=== PATIENT | male | born 1990 | race Hispanic/Latino ===

== ENCOUNTER 2018-05-17 08:59 | Emergency (ER) | payer MEDICAID ==
[2018-05-17 09:13] VITALS: BP 128/71
[2018-05-17] MEDS ORDERED: XYLOCAINE 1% 20 mL INFILTRATI ONE (09:51)
[2018-05-17] MEDS ORDERED: ZOFRAN ODT PO ONE (11:03)
[2018-05-17] MEDS ORDERED: TYLENOL #3 PO ONE (11:03)
[2018-05-17] MEDS ORDERED: BACTRIM DS PO ONE (11:03)
--- NOTE | 2018-05-17 11:08 | Emergency Department Report ---
ED General Adult HPI - General Chief complaint: Extremity Problem,Nontraumatic Stated complaint: LEFT KNEE PAIN Time Seen by Provider: 05/17/18 09:25 Source: patient Mode of arrival: Wheelchair Limitations: No Limitations - Related Data Previous Rx's Medication Instructions Recorded Last Taken Type Acetaminophen/Codeine [Tylenol 1 tab PO Q6H PRN #12 tab 05/17/18 Unknown Rx /Codeine # 3 tab] Sulfamethoxazole/Trimethoprim 2 each PO BID #28 tablet 05/17/18 Unknown Rx [Bactrim Ds Tablet] Allergies Allergy/AdvReac Type Severity Reaction Status Date / Time No Known Allergies Allergy Unverified 09/13/15 08:41 ED Review of Systems ROS: Stated complaint: LEFT KNEE PAIN Other details as noted in HPI Comment: All other systems reviewed and negative Constitutional: denies: chills, fever Eyes: denies: eye pain, eye discharge, vision change ENT: denies: ear pain, throat pain Respiratory: denies: cough, shortness of breath, wheezing Cardiovascular: denies: chest pain, palpitations Endocrine: no symptoms reported Gastrointestinal: denies: abdominal pain, nausea, diarrhea Genitourinary: denies: urgency, dysuria Musculoskeletal: denies: back pain, joint swelling, arthralgia Skin: denies: rash, lesions Neurological: denies: headache, weakness, paresthesias Psychiatric: denies: anxiety, depression Hematological/Lymphatic: denies: easy bleeding, easy bruising ED Past Medical Hx - Past Medical History Previous Medical History?: No - Surgical History Past Surgical History?: No - Social History Smoking Status: Current Every Day Smoker Substance Use Type: Marijuana - Medications Home Medications: Home Medications Medication Instructions Recorded Confirmed Last Taken Type Acetaminophen/Codeine [Tylenol 1 tab PO Q6H PRN #12 tab 05/17/18 Unknown Rx /Codeine # 3 tab] Sulfamethoxazole/Trimethoprim 2 each PO BID #28 tablet 05/17/18 Unknown Rx [Bactrim Ds Tablet] ED Physical Exam - General Limitations: No Limitations General appearance: alert, in no apparent distress - Head Head exam: Present: atraumatic, normocephalic - Eye Eye exam: Present: normal appearance, PERRL, EOMI - ENT ENT exam: Present: mucous membranes moist - Neck Neck exam: Present: normal inspection - Respiratory Respiratory exam: Present: normal lung sounds bilaterally - Cardiovascular Cardiovascular Exam: Present: regular rate, normal rhythm. Absent: systolic mu rmur, diastolic murmur, rubs, gallop - Rectal Rectal exam: Present: deferred - Extremities Exam Extremities exam: Present: other (there is a prepatellar abscess of the left knee with surrounding cellulitis) - Back Exam Back exam: Present: normal inspection - Neurological Exam Neurological exam: Present: alert, oriented X3, CN II-XII intact. Absent: motor sensory deficit - Psychiatric Psychiatric exam: Present: normal affect, normal mood - Skin Skin exam: Present: warm, dry, intact, normal color. Absent: rash ED Course Vital Signs 05/17/18 05/17/18 09:10 09:21 Temperature 98.1 F Pulse Rate 99 H Respiratory 20 18 Rate Blood Pressure 128/71 O2 Sat by Pulse 99 Oximetry - I & D Left Lower Knee Site: left prepatellar region Blade Size: 11 I & D Procedure: betadine prep, sterile drapes applied Progress: Lidocaine used Patient tolerated procedure well no complications ED Medical Decision Making - Medical Decision Making Discussed wound care with patient I&D not optimal due to the patient not being completely cooperative with the procedure Critical care attestation.: If time is entered above; I have spent that time in minutes in the direct care of this critically ill patient, excluding procedure time. ED Disposition Clinical Impression: Abscess, Cellulitis Disposition: TO HOME OR SELFCARE Is pt being admited?: No Does the pt Need Aspirin: No Condition: Stable Instructions: Abscess (ED) Additional Instructions: return if worse Prescriptions: Acetaminophen/Codeine [Tylenol /Codeine # 3 tab] 1 tab PO Q6H PRN #12 tab PRN Reason: pain Sulfamethoxazole/Trimethoprim [Bactrim Ds Tablet] 2 each PO BID #28 tablet Referrals: PRIMARY CARE, [Primary Care Provider] - 3-5 Days [facility] [Provider Group] - 3-5 Days [facility] [Provider Group] - 3-5 Days Time of Disposition: 11:08
== END 2018-05-17 11:22 | disposition home or self-care (01) ==
LOC: ED 08:59
DX: L02.416 Cutaneous abscess of left lower limb (principal); F17.200 Nicotine dependence, unspecified, uncomplicated
CPT/HCPCS: Q0162

== ENCOUNTER 2020-01-07 17:39 | Emergency (ER) | payer SELFPAY ==
[2020-01-07] MEDS ORDERED: ONDANSETRON 4 MG/2 ML INJ ONE (18:43)
[2020-01-07] MEDS ORDERED: MORPHINE 4 MG/1 ML INJ ONE (18:43)
--- NOTE | 2020-01-07 18:46 | XRay Report ---
HISTORY:WRIST PAIN/ SWELLING DEFFORMITY COMPARISON: None. TECHNIQUE: AP and lateral views were obtained FINDINGS: Bones: Fracture of the distal radius metaphyseal diaphyseal region is present with a component extend ing into the radiocarpal articular space. The ulnar styloid appears to be intact Joint spaces: Maintained. Soft tissues: No significant abnormality. Additional findings: None. IMPRESSION: 1. Fracture distal radius as noted Signer Name: Ruslan Carter MD Signed: 01/07/2020 6:42 PM Workstation Name: [id number]
[2020-01-07] MEDS ORDERED: HYDROmorphone 1 MG/1 ML INJ IV ONE (19:07)
--- NOTE | 2020-01-07 19:07 | Emergency Department Report ---
ED General Adult HPI - General Chief complaint: Extremity Injury, Upper Stated complaint: LEFT WRIST PAIN Time Seen by Provider: 01/07/20 18:35 Source: patient Mode of arrival: Ambulatory Limitations: No Limitations - History of Present Illness Initial comments: Patient presents to the emergency department the chief complaint of left arm pain that started after a fall yesterday. Patient states that he was on the [address] and he fell onto [address] and went to brace his fall when he began to have pain in his left forearm. Patient denies hitting his head or any loss of consciousness. Patient states this occurred around 10 AM yesterday. Patient states the pain got worse today at work. 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 Patient denies any chest pain, shortness breath, headache, abdominal pain. -: Sudden Location: upper extremity Radiation: non-radiation Severity scale (0 -10): 7 Quality: aching Consistency: constant Improves with: rest Worsens with: movement Associated Symptoms: denies other symptoms Treatments Prior to Arrival: none - Related Data Previous Rx's Medication Instructions Recorded Last Taken Type Acetaminophen/Codeine [Tylenol 1 tab PO Q6H PRN #12 tab 05/17/18 Unknown Rx /Codeine # 3 tab] Sulfamethoxazole/Trimethoprim 2 each PO BID #28 tablet 05/17/18 Unknown Rx [Bactrim Ds Tablet] HYDROcodone/APAP 7.5-325 [[place] 1 each PO Q6HR PRN #20 tablet 01/07/20 Unknown Rx 7.5/325] Allergies Allergy/AdvReac Type Severity Reaction Status Date / Time No Known Allergies Allergy Verified 01/07/20 17:41 ED Review of Systems ROS: Stated complaint: LEFT WRIST PAIN Other details as noted in HPI Comment: All other systems reviewed and negative Constitutional: denies: chills, fever Eyes: denies: eye pain, eye discharge, vision change ENT: denies: ear pain, throat pain Respiratory: denies: cough, shortness of breath, wheezing Cardiovascular: denies: chest pain, palpitations Endocrine: no symptoms reported Gastrointestinal: denies: abdominal pain, nausea, diarrhea Genitourinary: denies: urgency, dysuria Musculoskeletal: denies: back pain, joint swelling, arthralgia Skin: denies: rash, lesions Neurological: denies: headache, weakness, paresthesias Psychiatric: denies: anxiety, depression Hematological/Lymphatic: denies: easy bleeding, easy bruising ED Past Medical Hx - Past Medical History Previous Medical History?: No - Surgical History Past Surgical History?: No - Social History Smoking Status: Current Every Day Smoker Substance Use Type: Marijuana - Medications Home Medications: Home Medications Medication Instructions Recorded Confirmed Last Taken Type Acetaminophen/Codeine [Tylenol 1 tab PO Q6H PRN #12 tab 05/17/18 Unknown Rx /Codeine # 3 tab] Sulfamethoxazole/Trimethoprim 2 each PO BID #28 tablet 05/17/18 Unknown Rx [Bactrim Ds Tablet] HYDROcodone/APAP 7.5-325 [[place] 1 each PO Q6HR PRN #20 tablet 01/07/20 Unknown Rx 7.5/325] ED Physical Exam - General Limitations: No Limitations General appearance: alert, in no apparent distress - Head Head exam: Present: atraumatic, normocephalic - Eye Eye exam: Present: normal appearance, PERRL, EOMI - ENT ENT exam: Present: mucous membranes moist - Neck Neck exam: Present: normal inspection - Respiratory Respiratory exam: Present: normal lung sounds bilaterally. Absent: respiratory distress - Cardiovascular Cardiovascular Exam: Present: regular rate, normal rhythm. Absent: systolic murmur, diastolic murmur, rubs, gallop - GI/Abdominal GI/Abdominal exam: Present: soft, normal bowel sounds - Rectal Rectal exam: Present: deferred - Extremities Exam Extremities exam: Present: tenderness, other (Deformity of the distal radius left side. There is tenderness to palpation of the lateral medial epicondyle of the left elbow. There is also tenderness over the radius midshaft left side.) - Back Exam Back exam: Present: normal inspection - Neurological Exam Neurological exam: Present: alert, oriented X3 - Psychiatric Psychiatric exam: Present: normal affect, normal mood - Skin Skin exam: Present: warm, dry, intact, normal color. Absent: rash ED Course Vital Signs 01/07/20 01/07/20 01/07/20 17:42 19:53 20:05 Temperature 98.0 F 98.1 F Pulse Rate 116 H 95 H Respiratory 20 18 24 Rate Blood Pressure 123/81 Blood Pressure 128/70 [Left] O2 Sat by Pulse 99 97 Oximetry ED Medical Decision Making - Radiology Data Radiology results: report reviewed - Medical Decision Making Discussed results with patient Critical care attestation.: If time is entered above; I have spent that time in minutes in the direct care of this critically ill patient, excluding procedure time. ED Disposition Clinical Impression: Radius and ulna distal fracture Disposition: TO HOME OR SELFCARE Is pt being admited?: No Does the pt Need Aspirin: No Condition: Stable Instructions: Arm Fracture in Adults (ED), Wrist Fracture in Adults (ED) Additional Instructions: return if worse Prescriptions: HYDROcodone/APAP 7.5-325 [[place] 7.5/325] 1 each PO Q6HR PRN #20 tablet PRN Reason: Pain Referrals: ELAINE SMITH MD [Staff Physician] - 3-5 Days Time of Disposition: 20:59
--- NOTE | 2020-01-07 19:56 | XRay Report ---
HISTORY:pain trauma COMPARISON: None. TECHNIQUE: AP lateral views were obtained FINDINGS: Bones: Fracture distal radius with impaction and angulation is present. Ulnar styloid fracture is pre sent Joint spaces: Maintained. Soft tissues: No significant abnormality. Additional findings: None. IMPRESSION: 1. Fracture distal radius and ulnar styloid Signer Name: Ruslan Carter MD Signed: 01/07/2020 7:52 PM Workstation Name: [id number]
--- NOTE | 2020-01-07 19:56 | XRay Report ---
HISTORY: Trauma COMPARISON: None. TECHNIQUE: AP lateral views were obtained FINDINGS: Bones: No fracture or dislocation. Joint spaces: Maintained. Soft tissues: No significant abnormality. Additional findings: None. IMPRESSION: 1. No significant abnormality. Signer Name: Ruslan Carter MD Signed: 01/07/2020 7:51 PM Workstation Name: [id number]
[2020-01-07] MEDS ORDERED: MORPHINE 4 MG/1 ML INJ IV ONE (21:21)
[2020-01-07] MEDS ORDERED: ONDANSETRON 4 MG/2 ML INJ IV ONE (21:22)
[2020-01-07] MEDS ORDERED: HYDROcodone/ACETAMINOPHEN 5-325 MG TAB PO ONE (23:10)
[2020-01-07 23:42] VITALS: BP 129/85
== END 2020-01-07 23:35 | disposition home or self-care (01) ==
LOC: ED 17:39
DX: S52.502A Unspecified fracture of the lower end of left radius, initial encounter for closed fracture (principal); S52.602A Unspecified fracture of lower end of left ulna, initial encounter for closed fracture; F17.200 Nicotine dependence, unspecified, uncomplicated; F12.10 Cannabis abuse, uncomplicated; Z79.899 Other long term (current) drug therapy; V89.9XXA Person injured in unspecified vehicle accident, initial encounter; Y93.89 Activity, other specified; Y92.89 Other specified places as the place of occurrence of the external cause; Y99.8 Other external cause status
CPT/HCPCS: 29125; 73070; 73090; 73100; 96374; 96375; 99283; J1170; J2270; J2405